=== PATIENT | male | born 1950 | race Caucasian/White ===

== ENCOUNTER 2017-10-09 11:06 | Outpatient (CLI) | payer MEDICARE, OTHER ==
[~2017-10-09] VITALS: Ht 177.8 cm; Wt 70.7 kg
[2017-10-09 12:36] VITALS: BP 108/61; PULSE 80; TEMP 98
[2017-10-09] MEDS ORDERED: FLEXERIL 1010 MG/TAB PO (12:47)
[2017-10-09] MEDS ORDERED: DILANTIN 100MG100 MG PO (12:47)
[2017-10-09] MEDS ORDERED: NORCO 325 MG-51 TAB PO (12:50)
[2017-10-09] MEDS ORDERED: ULTRAM 50MG TAB50 MG PO (12:51)
[2017-10-09] MEDS ORDERED: CLARITIN 1010 MG/TAB PO (12:52)
[2017-10-09] MEDS ORDERED: COLACE 100100 MG/CAP PO (12:52)
[2017-10-09] MEDS ORDERED: ZOCOR5 MG PO (12:53)
[2017-10-09] MEDS ORDERED: COMPAZINE 110 MG/TAB PO (12:55)
[2017-10-09 14:25] VITALS: BP 122/72; PULSE 80
[2017-10-09 15:10] VITALS: BP 113/65; PULSE 81
[2017-10-09 15:25] VITALS: BP 121/70; PULSE 81; TEMP 98.2
[2017-10-09 16:24] VITALS: BP 119/63; PULSE 83
[2017-10-09 17:30] VITALS: BP 101/66; PULSE 91
== END 2017-10-09 18:35 | disposition home or self-care (01) ==
LOC: COL.CAR 11:06
DX: S22.080A Wedge compression fracture of T11-T12 vertebra, initial encounter for closed fracture (principal)
CPT/HCPCS: C1713; J2250; J3010; J7120